=== PATIENT | male | born 1995 | race African-American/Black ===

== ENCOUNTER 2018-01-05 10:56 | Emergency (ER) | payer OTHER ==
[~2018-01-05] VITALS: Ht 175.3 cm; Wt 72.6 kg
[2018-01-05 11:08] VITALS: BP 130/68
[2018-01-05] MEDS ORDERED: CYCLOBENZAPRINE 10 MG TABLET. PO ONE (11:45)
[2018-01-05] MEDS ORDERED: HYDROcodone/APAP 5/325MG 1 TAB TABLET PO ONE (11:45)
--- NOTE | 2018-01-05 12:03 | RAD ---
INDICATION: Low back pain after pushups. TECHNIQUE: 3 views of the lumbosacral spine are submitted for review. No comparison is available. FINDINGS: There is no fracture. Vertebral body height is maintained. L4 anterior superior corner triangular ossific fragment is noted compatible with limbus vertebra. This is unlikely to be an acute finding. There is no malalignment. IMPRESSION: No evidence of an acute fracture or traumatic malalignment. Electronically signed by: Chaka Bo MD (01/05/2018 12:00 PM) [id number]
[2018-01-05] MEDS ORDERED: META-21 PO (12:31)
[2018-01-05] MEDS ORDERED: HYDR-971 PO (12:31)
--- NOTE | 2018-01-05 12:33 | PHYS DOC ---
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 Patient states he was able to finish running test but his pain gradually became worse even he applied some heat and ice and took ibuprofen and Flexeril. Patient states he has more pain since this morning that getting worse with bending over and movement. Patient denies fever and chills, urinary and bowel incontinence, focal neuro deficit, nausea and vomiting. Review of Systems Review of Systems Constitutional: Denies fever or chills [] Eyes: Denies change in visual acuity, redness, or eye pain [] HENT: Denies nasal congestion or sore throat [] Respiratory: Denies cough or shortness of breath [] Cardiovascular: No additional information not addressed in HPI [] GI: Denies abdominal pain, nausea, vomiting, bloody stools or diarrhea [] : Denies dysuria or hematuria [] Musculoskeletal: Denies joint pain , reports back pain[] Integument: Denies rash or skin lesions [] Neurologic: Denies headache, focal weakness or sensory changes [] Endocrine: Denies polyuria or polydipsia [] All other systems were reviewed and found to be within normal limits, except as documented in this note. Current Medications Current Medications Current Medications Medications (Trade) Dose Ordered Sig/Monty Start Time Stop Time Status Last Admin Dose Admin Acetaminophen/ Hydrocodone Bitart (Lortab 5/325) 1 tab 1X ONCE 01/05/18 11:45 01/05/18 11:46 DC 01/05/18 11:44 1 TAB Cyclobenzaprine HCl (Flexeril) 10 mg 1X ONCE 01/05/18 11:45 01/05/18 11:46 DC 01/05/18 11:43 10 MG Allergies Allergies Allergies Coded Allergies Type Severity Reaction Last Updated Verified No Known Drug Allergies 01/05/18 No Physical Exam Physical Exam Constitutional: Well developed, well nourished,mild distress, non-toxic appearance. [] HENT: Normocephalic, atraumatic Eyes: PERRLA, EOMI, conjunctiva normal, no discharge. [] Neck: Normal range of motion, no tenderness, supple, no stridor. [] Cardiovascular:Heart rate regular rhythm, no murmur [] Lungs & Thorax: Bilateral breath sounds clear to auscultation [] Abdomen: Bowel sounds normal, soft, no tenderness, no masses, no pulsatile masses. [] Skin: Warm, dry, no erythema, no rash. [] Back: No midline tenderness, bilateral paraspinal muscle spasm and limited range of motion because of pain, no CVA tenderness. [] Extremities: No tenderness, no cyanosis, no clubbing, ROM intact, no edema. [] Neurologic: Alert and oriented X 3, normal motor function, normal sensory function, no focal deficits noted. [] Psychologic: Affect normal, judgement normal, mood normal. [] Current Patient Data Vital Signs Vital Signs Date Time Temp Pulse Resp B/P (MAP) Pulse Ox O2 Delivery O2 Flow Rate FiO2 01/05/18 11:08 88 18 94 Room Air EKG EKG [] Radiology/Procedures Radiology/Procedures [][place] [address] IMAGING REPORT Signed PATIENT: JOSE ENRIQUE PUENTE ACCOUNT: [id number] : 1995 LOCATION: ER AGE: 22 SEX: M EXAM STATUS: REG ER ORD. PHYSICIAN: ANJANA AMBROSE MD REASON: back pain after pushups PROCEDURE: LUMBAR SPINE 2-3V INDICATION: Low back pain after pushups. TECHNIQUE: 3 views of the lumbosacral spine are submitted for review. No comparison is available. FINDINGS: There is no fracture. Vertebral body height is maintained. L4 anterior superior corner triangular ossific fragment is noted compatible with limbus vertebra. This is unlikely to be an acute finding. There is no malalignment. IMPRESSION: No evidence of an acute fracture or traumatic malalignment. Electronically signed by: Chaka Bo MD (01/05/2018 12:00 PM) [id number] DICTATED AND SIGNED BY: CHAKA BO MD DATE: 01/05/18 1155 CC: ANJANA AMBROSE MD; PCP,UNKNOWN ~ Course & Med Decision Making Course & Med Decision Making Pertinent Imaging studies reviewed. (See chart for details) discharge: I've spoken with the patient and/or caregivers. I've explained the patient's condition, diagnosis and treatment plan based on information available to me at this time. I've answered the patient's and/or caregivers questions and addressed any concerns. The patient and/or caregivers have a good understanding the patient's diagnosis, condition and treatment plan as can be expected at this point. Vital signs have been stabilized. The patient's condition is stable for discharge from the emergency department. The patient will pursue further outpatient evaluation with her primary care provider or other designated consulting physician as outlined in the discharge instructions. Patient and/or caregivers are agreeable to this plan of care and follow-up instructions have been explained in detail. The patient and/or caregivers have received these instructions in written format and expressed understanding of these discharge instructions. The patient and her caregivers are aware that if any significant change in condition or worsening of symptoms should prompt him to immediately return to this of the closest emergency department. If an emergent department is not readily available I would encourage him to call 911. [] Dragon Disclaimer Dragon Disclaimer This electronic medical record was generated, in whole or in part, using a voice recognition dictation system. Departure Departure: Impression: Primary Impression: Lumbosacral strain Disposition: 01 HOME, SELF-CARE (At 1229) Condition: IMPROVED Referrals: PCP,UNKNOWN (PCP) Patient Instructions: Lumbosacral Strain Additional Instructions: Apply ice on the affected area Follow-up with your primary care physician in 3-5 days Return to ER if not getting better Scripts Metaxalone (SKELAXIN) 800 Mg Tablet 1 TAB PO TID, #30 TAB Prov: ANJANA AMBROSE MD 01/05/18 Hydrocodone Bit/Acetaminophen (NORCO 5-325 TABLET) 1 Each Tablet 1 TAB PO PRN Q6HRS PRN for PAIN, #14 TAB 0 Refills Prov: ANJANA AMBROSE MD 01/05/18 ANJANA AMBROSE MD January 05, 2018 12:33
== END 2018-01-05 12:43 | disposition home or self-care (01) ==
LOC: ER 10:56
DX: S39.012A Strain of muscle, fascia and tendon of lower back, initial encounter (principal); G89.29 Other chronic pain; X50.3XXA Overexertion from repetitive movements, initial encounter; Y93.B2 Activity, push-ups, pull-ups, sit-ups; Y99.8 Other external cause status; Y92.89 Other specified places as the place of occurrence of the external cause
CPT/HCPCS: 72100; 99284-25